=== PATIENT | female | born 1985 | race American Indian/Alaskan Native ===

== ENCOUNTER 2017-01-18 05:05 | Observation (INO) | payer OTHER ==
[2017-01-18 05:09] VITALS: BMI 31.1
[2017-01-18 05:19] VITALS: TEMP 98.1
--- NOTE | 2017-01-18 05:19 | ED PDOC ---
Arrival/HPI - General Historian: Patient - History of Present Illness Time/Duration: Other (tonight) Symptom Onset: Gradual Symptom Course: Unchanged Activities at Onset: Rest, Light Context: Home <Michael Lazo - Last Filed: 01/18/17 05:30> <Isiah Ervin - Last Filed: 01/18/17 13:56> - General Chief Complaint: Abdominal Pain Time Seen by Provider: 01/18/17 05:13 - History of Present Illness Narrative History of Present Illness (Text): 01/18/17 05:18 Annamaria Snell is a 31 year old female who presents to the Emergency department brought in by EMS complaining of lower abdominal pain tonight. Patient also complaining of associated back pain and nausea. Patient denies any fever, chills , chest pain, shortness of breath, vomiting, diarrhea, urinary symptoms,pain, neck pain, headache, dizziness, or any other complaints. (Michael Lazo) Past Medical History - Provider Review Nursing Documentation Reviewed: Yes - Psychiatric Hx Psychophysiologic Disorder: No Hx Substance Use: No - Anesthesia Hx Anesthesia: No <VioletMichael - Last Filed: 01/18/17 05:30> Family/Social History - Physician Review Nursing Documentation Reviewed: Yes Family/Social History: No Known Family HX Smoking Status: Never Smoked Hx Alcohol Use: No Hx Substance Use: No <VioletMichael - Last Filed: 01/18/17 05:30> Allergies/Home Meds <VioletMichael - Last Filed: 01/18/17 05:30> <Isiah Ervin - Last Filed: 01/18/17 13:56> Allergies/Adverse Reactions: Allergies No Known Allergies Allergy (Verified 01/18/17 05:08) Review of Systems - Physician Review All systems were reviewed & negative as marked: Yes - Review of Systems Constitutional: Normal. absent: Fevers Eyes: Normal ENT: Normal Respiratory: Normal. absent: SOB, Cough Cardiovascular: Normal. absent: Chest Pain Gastrointestinal: Abdominal Pain, Nausea Genitourinary Female: Normal. absent: Dysuria, Frequency, Hematuria, Urine Output Changes Musculoskeletal: Back Pain. absent: Neck Pain Skin: Normal. absent: Rash Neurological: Normal. absent: Headache, Dizziness Endocrine: Normal Hemo/Lymphatic: Normal Psychiatric: Normal <VioletMichael - Last Filed: 01/18/17 05:30> Physical Exam Vital Signs Reviewed: Yes Temperature: Afebrile Blood Pressure: Normal Pulse: Regular Respiratory Rate: Normal Appearance: Positive for: Well-Appearing, Non-Toxic, Comfortable Pain Distress: None Mental Status: Positive for: Alert and Oriented X 3 - Systems Exam Head: Present: Atraumatic, Normocephalic Pupils: Present: PERRL Extroacular Muscles: Present: EOMI Conjunctiva: Present: Normal Mouth: Present: Moist Mucous Membranes Neck: Present: Normal Range of Motion Respiratory/Chest: Present: Clear to Auscultation, Good Air Exchange. No: Respiratory Distress, Accessory Muscle Use Cardiovascular: Present: Regular Rate and Rhythm, Normal S1, S2. No: Murmurs Abdomen: Present: Tenderness (Lower abdominal tenderness), Normal Bowel Sounds. No: Distention, Peritoneal Signs Upper Extremity: Present: Normal Inspection. No: Cyanosis, Edema Lower Extremity: Present: Normal Inspection. No: Edema Neurological: Present: GCS=15, CN II-XII Intact, Speech Normal Skin: Present: Warm, Dry, Normal Color. No: Rashes Psychiatric: Present: Alert, Oriented x 3, Normal Insight, Normal Concentration <Michael Lazo - Last Filed: 01/18/17 05:30> Medical Decision Making <Michael Lazo - Last Filed: 01/18/17 05:30> <Isiah Ervin - Last Filed: 01/18/17 13:56> ED Course and Treatment: 01/18/17 05:18 Impression: 31 year old female complaining of lower abdominal pain, back pain, and nausea tonight. Plan: -- Labs, lipase -- Urinalysis -- IV fluids -- Zofran -- Reassess and disposition Progress Notes: (Michael Lazo) - Lab Interpretations Lab Results: Lab Results 01/18/17 05:29: Urine Color Yellow, Urine Appearance Sl cloudy, Urine pH 6.0, Ur Specific [place] 1.020, Urine Protein Negative, Urine Glucose (UA) Negative, Urine Ketones Negative, Urine Blood Trace-intact H, Urine Nitrate Negative, Urine Bilirubin Negative, Urine Urobilinogen 0.2, Ur Leukocyte Esterase Trace H , Urine RBC 1 - 3, Urine WBC 5 - 10, Ur Epithelial Cells 1 - 3, Urine Bacteria Large - Medication Orders Current Medication Orders: Discontinued Medications Sodium Chloride (Sodium Chloride 0.9%) 1,000 mls @ 100 mls/hr IV .Q10H STA Stop: 01/18/17 15:24 Last Admin: 01/18/17 06:03 Dose: 100 mls/hr Iohexol (Omnipaque 350 100 Ml) Confirm Administered Dose 350 mg .ROUTE .STK-MED ONE Stop: 01/18/17 07:04 Morphine Sulfate (Morphine) 4 mg IVP STAT STA Stop: 01/18/17 05:26 Last Admin: 01/18/17 06:03 Dose: 4 mg Re-Assess: LILIANA Pain Assessment Document 01/18/17 07:03 YP (Rec: 01/18/17 07:14 YP [id number]) Pain Reassessment Is this a pain reassessment? Yes Sleep Is patient sleeping during reassessment? No Presence of Pain Presence of Pain No Ondansetron HCl (Zofran Inj) 4 mg IVP STAT STA Stop: 01/18/17 05:26 Last Admin: 01/18/17 06:03 Dose: 4 mg ED OBSERVATION <Michael Lazo - Last Filed: 01/18/17 05:30> Date of observation admission: 01/18/17 Time of observation admission: 05:45 <Isiah Ervin - Last Filed: 01/18/17 13:56> - Observation admission statement Patient is being placed in observation because:: Abdominal pain (Isiah Ervin) - Goals of Observation Goals of observation are:: Pending CT scan, labs, reevaluation (Isiah Ervin) - Progress Note Progress Note: 01/18/17 07:00 Case endorsed to me by , pending CT scan, reevaluation and disposition. 01/18/17 07:55 Pain is controlled. Abdomen is soft, not distended and mildly tender in periumbilical area. No lower abdominal tenderness. Will reevaluate. 01/18/17 09:28 PROCEDURE: CT Abdomen and Pelvis with contrast FINDINGS: LOWER THORAX: Cardiomegaly. . Minor passive atelectasis both posterior lower lung harris high No infiltrate effusion or basilar pneumothorax. Small hiatal hernia. LIVER: There appears to be mild fatty hepatic infiltration. No gross lesion or ductal dilatation. GALLBLADDER AND BILE DUCTS: Unremarkable. PANCREAS: Unremarkable. No gross lesion or ductal dilatation. SPLEEN: Unremarkable. ADRENALS: Unremarkable. No mass. KIDNEYS AND URETERS: Unremarkable. No hydronephrosis. No solid mass. VASCULATURE: Unremarkable. No aortic aneurysm. BOWEL: Few scattered colonic diverticula however no radiographic evidence acute diverticulitis. APPENDIX: Normal appendix. PERITONEUM: No free air or fluid. LYMPH NODES: Multiple small nonspecific retroperitoneal lymph nodes are present. BLADDER: Urinary bladder is incompletely distended which presumably accounts for thick- walled appearance however cystitis not excluded the area Mr. film over the abuse well REPRODUCTIVE: Chronic appearing anterior stature loss of the T12 segment BONES: OTHER FINDINGS: None. IMPRESSION: There is a distended gallbladder with wall thickening and/or edema and suspected small amount of pericholecystic fluid. No definitive intraluminal gallbladder calculi. Findings may represent acute acalculous cholecystitis. Clinical correlation recommended. Wall thickening of the urinary bladder likely due to incomplete distention however the possibility of cystitis not excluded. Few scattered colonic diverticula without radiographic evidence of acute diverticulitis. 01/18/17 12:19 US abdomen results reviewed: FINDINGS: LIVER: Measures 13.1 cm. Increased echogenicity of the liver parenchyma consistent with fatty infiltration however other infiltrative hepatocellular disease process not excluded. . No mass. No intrahepatic bile duct dilatation. GALLBLADDER: Cholelithiasis with associated intraluminal gallbladder sludge of. The mild wall edema with gallbladder wall measuring 1.16 cm. No sonographic Woodson sign. Findings may represent acute cholecystitis despite the fact that sonographic Woodson sign is negative ; this could be due to administration of pain medication however clinical correlation is therefore recommended. . COMMON BILE DUCT: Measures 4.2 mm. No stones. No dilatation. PANCREAS: Unremarkable as visualized. No mass. No ductal dilatation. RIGHT KIDNEY: Measures 9.4 x 4.3 x 5.0 cmcm. Normal echogenicity. No calculus, mass, or hydronephrosis. LEFT KIDNEY: Measures 10.0 x 5.1 x 5.1 cmcm. Normal echogenicity. No calculus, mass, or hydronephrosis. SPLEEN: Normal in size and contour. No mass. AORTA: No aneurysmal dilatation. IVC: Unremarkable. OTHER FINDINGS: None. IMPRESSION: Cholelithiasis with gallbladder wall thickening/ edema however no sonographic Woodson sign. Findings may represent acute cholecystitis on despite the fact that sonographic Woodson sign is negative on this exam as reported by the technologist ; has patient received pain medication? Fatty hepatic infiltration. 01/18/17 13:00 Patient no longer having pain. Patient speaks russian and used translation services [employer] # [id number]. She said her pain was periumbilical when she had it. Not lower than that nor upper. Reevaluation, abdomen soft and not tender. Tolerating PO fluids. Discussed US findings with Sieve Repairer who stated Dr. Peterson will come to evaluate patient. 01/18/17 13:55 Dr. Peterson came to evaluate patient and he agrees that she can go home with f/u. He gave her his card to f/u. No antibiotics needed. She was given [facility] and told to return to the ED with any worsening symptoms or concerns. She was given all this information with translation services again with [employer] # [id number]. (Isiah Ervin) - Scribe Statement The provider has reviewed the documentation as recorded by the Scribe <Michael Lazo - Last Filed: 01/18/17 05:30> <Isiah Ervin - Last Filed: 01/18/17 13:56> - Scribe Statement Norma Finley All medical record entries made by the Scribe were at my direction and personally dictated by me. I have reviewed the chart and agree that the record accurately reflects my personal performance of the history, physical exam, medical decision making, and the department course for this patient. I have also personally directed, reviewed, and agree with the discharge instructions and disposition. (Michael Lazo) Disposition/Present on Arrival - Present on Arrival History of DVT/PE: No History of Uncontrolled Diabetes: No Urinary Catheter: No History of Decub. Ulcer: No History Surgical Site Infection Following: None <Michael Lazo - Last Filed: 01/18/17 05:30> - Present on Arrival Any Indicators Present on Arrival: No - Disposition Have Diagnosis and Disposition been Completed?: Yes Disposition Time: 13:56 Patient Plan: Discharge <Isiah Ervin - Last Filed: 01/18/17 13:56> - Disposition Diagnosis: Abdominal pain, Biliary colic Disposition: HOME/ ROUTINE Condition: IMPROVED
[2017-01-18] MEDS ORDERED: Sodium Chloride 0.9% 1,000 ML IV STA (05:25)
[2017-01-18] MEDS ORDERED: Morphine 4 mg/ml ISec IVP STA (05:25)
[2017-01-18 05:52] LABS: URINE BILIRUBIN NEGATIVE (NEGATIVE); URINE BLOOD TRACE-INTACT (NEGATIVE); URINE GLUCOSE (UA) NEGATIVE (NEGATIVE); URINE KETONE NEGATIVE (NEGATIVE); URINE LEUKOCYTE ESTERASE TRACE Leu/uL (NEGATIVE); URINE PROTEIN NEGATIVE mg/dL (<30 mg/dL); URINE UROBILINOGEN 0.2 E.U./dL (<1 E.U./dL)
[2017-01-18 05:53] LABS: URINE APPEARANCE SL CLOUDY (CLEAR); URINE COLOR YELLOW (YELLOW)
[2017-01-18 06:09] LABS: ADD MANUAL DIFF? NO
[2017-01-18 06:14] LABS: BASO # 0.04 K/mm3 (0.0-2.0); BASO % 0.6 % (0.0-3.0); EOS # 0.1 (0.0-0.7); EOS % 1.9 % (1.5-5.0); GRAN % 59.7 % (50.0-68.0); LYMPH % 29.9 % (22.0-35.0); MEAN CELL VOLUME 84.3 fL (80.0-105.0); MEAN CORPUSCULAR HEMOGLOBIN 28.3 pg (25.0-35.0); MEAN CORPUSCULAR HGB CONC 33.6 g/dl (31.0-37.0); MEAN PLATELET VOLUME 10.2 fl (7.0-11.0); MONO # 0.5 (0.1-0.6); MONO % 7.9 % (1.0-6.0); PLATELET COUNT 312 10^3/uL (120.0-450.0); RED CELL DISTRIBUTION WIDTH 12.7 % (11.5-14.5); WHITE BLOOD COUNT 6.7 10^3/ul (4.5-11.0)
[2017-01-18 06:20] LABS: URINE BACTERIA LARGE (NEG)
[2017-01-18 06:21] LABS: ALKALINE PHOSPHATASE 74 U/L (38-133); ALT/SGPT 45 U/L (7-56); AST/SGOT 32 U/L (15-39); BLOOD UREA NITROGEN 9 mg/dL (7-21); CALCIUM 9.4 mg/dL (8.4-10.5); CARBON DIOXIDE 20 mmol/L (21-33); CHLORIDE 104 mmol/L (98-107); GFR AFRICAN-AMERICAN > 60; GLUCOSE,RANDOM 101 mg/dL (70-110); LIPASE 45 U/L (23-300); POTASSIUM 3.8 mmol/L (3.6-5.0); SODIUM 137 mmol/L (132-148); TOTAL PROTEIN 8.2 g/dL (5.8-8.3)
[2017-01-18 06:24] LABS: PARTIAL THROMBOPLASTIN TIME 34.4 Seconds (23.7-30.8)
[2017-01-18] MEDS ORDERED: Iohexol 350 MG/100 ML VIAL ONE (07:03)
--- NOTE | 2017-01-18 07:41 | ED PDOC ---
Physical Exam Vital Signs Reviewed: Yes Vital Signs Temp Pulse Resp BP Pulse Ox 01/18/17 06:58 61 16 117/73 99 01/18/17 05:18 98.1 F 73 17 131/75 100 Temperature: Afebrile Blood Pressure: Normal Pulse: Regular Respiratory Rate: Normal Appearance: Positive for: Well-Appearing, Non-Toxic, Comfortable Pain Distress: None Mental Status: Positive for: Alert and Oriented X 3 Medical Decision Making ED Course and Treatment: 01/18/17 07:39 Case endorsed to me by , pending CT abdomen pelvis, reevaluation and disposition. Patient is a 31 year old female who presents to the emergency department complaining of lower abdominal pain since yesterday night. Denies nausea, vomiting, or diarrhea. - Lab Interpretations Lab Results: Lab Results 01/18/17 05:29: Urine Color Yellow, Urine Appearance Sl cloudy, Urine pH 6.0, Ur Specific [place] 1.020, Urine Protein Negative, Urine Glucose (UA) Negative, Urine Ketones Negative, Urine Blood Trace-intact H, Urine Nitrate Negative, Urine Bilirubin Negative, Urine Urobilinogen 0.2, Ur Leukocyte Esterase Trace H , Urine RBC 1 - 3, Urine WBC 5 - 10, Ur Epithelial Cells 1 - 3, Urine Bacteria Large - Medication Orders Current Medication Orders: Sodium Chloride (Sodium Chloride 0.9%) 1,000 mls @ 100 mls/hr IV .Q10H STA Stop: 01/18/17 15:24 Last Admin: 01/18/17 06:03 Dose: 100 mls/hr Discontinued Medications Iohexol (Omnipaque 350 100 Ml) Confirm Administered Dose 350 mg .ROUTE .STK-MED ONE Stop: 01/18/17 07:04 Morphine Sulfate (Morphine) 4 mg IVP STAT STA Stop: 01/18/17 05:26 Last Admin: 01/18/17 06:03 Dose: 4 mg Re-Assess: LILIANA Pain Assessment Document 01/18/17 07:03 YP (Rec: 01/18/17 07:14 YP [id number]) Pain Reassessment Is this a pain reassessment? Yes Sleep Is patient sleeping during reassessment? No Presence of Pain Presence of Pain No Ondansetron HCl (Zofran Inj) 4 mg IVP STAT STA Stop: 01/18/17 05:26 Last Admin: 01/18/17 06:03 Dose: 4 mg Disposition/Present on Arrival - Present on Arrival History of DVT/PE: No History of Uncontrolled Diabetes: No Urinary Catheter: No History of Decub. Ulcer: No History Surgical Site Infection Following: None - Disposition
--- NOTE | 2017-01-18 09:09 | CT ---
PROCEDURE: CT Abdomen and Pelvis with contrast HISTORY: abd pain COMPARISON: None. TECHNIQUE: Contrast dose: 100 cc Radiation dose: Total exam DLP = 1992.28 mGy-cm. This CT exam was performed using one or more of the following dose reduction techniques: Automated exposure control, adjustment of the mA and/or kV according to patient size, and/or use of iterative reconstruction technique. FINDINGS: LOWER THORAX: Cardiomegaly. . Minor passive atelectasis both posterior lower lung [place]arris high No infiltrate effusion or basilar pneumothorax. Small hiatal hernia. LIVER: There appears to be mild fatty hepatic infiltration. No gross lesion or ductal dilatation. GALLBLADDER AND BILE DUCTS: Unremarkable. PANCREAS: Unremarkable. No gross lesion or ductal dilatation. SPLEEN: Unremarkable. ADRENALS: Unremarkable. No mass. KIDNEYS AND URETERS: Unremarkable. No hydronephrosis. No solid mass. VASCULATURE: Unremarkable. No aortic aneurysm. BOWEL: Few scattered colonic diverticula however no radiographic evidence acute diverticulitis. APPENDIX: Normal appendix. PERITONEUM: No free air or fluid. LYMPH NODES: Multiple small nonspecific retroperitoneal lymph nodes are present. BLADDER: Urinary bladder is incompletely distended which presumably accounts for thick-walled appearance however cystitis not excluded the area Mr. film over the abuse well REPRODUCTIVE: Chronic appearing anterior stature loss of the T12 segment BONES: OTHER FINDINGS: None. IMPRESSION: There is a distended gallbladder with wall thickening and/or edema and suspected small amount of pericholecystic fluid. No definitive intraluminal gallbladder calculi. Findings may represent acute acalculous cholecystitis. Clinical correlation recommended. Wall thickening of the urinary bladder likely due to incomplete distention however the possibility of cystitis not excluded. Few scattered colonic diverticula without radiographic evidence of acute diverticulitis.
--- NOTE | 2017-01-18 11:56 | US ---
HISTORY: abd pain r/o cholecystitis COMPARISON: None. TECHNIQUE: Sonographic evaluation of the abdomen. FINDINGS: LIVER: Measures 13.1 cm. Increased echogenicity of the liver parenchyma consistent with fatty infiltration however other infiltrative hepatocellular disease process not excluded. . No mass. No intrahepatic bile duct dilatation. GALLBLADDER: Cholelithiasis with associated intraluminal gallbladder sludge of. The mild wall edema with gallbladder wall measuring 1.16 cm. No sonographic Woodson sign. Findings may represent acute cholecystitis despite the fact that sonographic Woodson sign is negative ; this could be due to administration of pain medication however clinical correlation is therefore recommended. . COMMON BILE DUCT: Measures 4.2 mm. No stones. No dilatation. PANCREAS: Unremarkable as visualized. No mass. No ductal dilatation. RIGHT KIDNEY: Measures 9.4 x 4.3 x 5.0 cmcm. Normal echogenicity. No calculus, mass, or hydronephrosis. LEFT KIDNEY: Measures 10.0 x 5.1 x 5.1 cmcm. Normal echogenicity. No calculus, mass, or hydronephrosis. SPLEEN: Normal in size and contour. No mass. AORTA: No aneurysmal dilatation. IVC: Unremarkable. OTHER FINDINGS: None. IMPRESSION: Cholelithiasis with gallbladder wall thickening/ edema however no sonographic Woodson sign. Findings may represent acute cholecystitis on despite the fact that sonographic Woodson sign is negative on this exam as reported by the technologist ; has patient received pain medication? Fatty hepatic infiltration.
[2017-01-18 13:33] VITALS: O2SAT 100
--- NOTE | 2017-01-18 13:57 | CP.PCM.CON ---
<Mark Mendez - Last Filed: 01/18/17 13:57> History of Present Illness - History of Present Illness History of Present Illness: General Surgery Progress For Dr. Peterson CC: Abdominal Pain HPI This is a 31F with no significant PMH who presents due to abdominal pain. She reports that she has had abdominal pain after eating for the past month however yesterday it was significantly worse. Patient denies any pain at the time of exam. She denies any nausea, vomitting, diarrhea or constipation. She reports he last BM was yesterday and she is passing flatus. She denies fevers or chills at home. US in the ED found no stones, a normal CBD, a GB wall that was 1.12mm with pericholecystic fluid. No chest pain or SOB PMH: Denies PSH: Leg surgery ALL: NKDA Social: Denies etoh, Tobacco, Drugs Review of Systems - EENT Eyes: absent: Blind Spots, Change in Vision, Other Visual Disturbances Ears: absent: Decreased Hearing, Ear Discharge Nose/Mouth/Throat: absent: Nasal Congestion, Nasal Trauma - Cardiovascular Cardiovascular: absent: Chest Pain, Dyspnea - Respiratory Respiratory: absent: Dyspnea, Hemoptysis - Gastrointestinal Gastrointestinal: Abdominal Pain, Bloating, Cramping. absent: Loose Stools, Nausea, Vomiting - Genitourinary Genitourinary: absent: Change in Urinary Stream, Urinary Hesitance - Musculoskeletal Musculoskeletal: absent: Arthralgias - Neurological Neurological: absent: Dizziness, Loss of Vision Past Patient History - Past Social History Smoking Status: Never Smoked - PSYCHIATRIC Hx Psychophysiologic Disorder: No Hx Substance Use: No - SURGICAL HISTORY Hx Surgeries: No - ANESTHESIA Hx Anesthesia: No Meds Allergies/Adverse Reactions: Allergies Allergy/AdvReac Type Severity Reaction Status Date / Time No Known Allergies Allergy Verified 01/18/17 05:08 Physical Exam - Constitutional Appears: Non-toxic, No Acute Distress - Head Exam Head Exam: ATRAUMATIC, NORMOCEPHALIC - Eye Exam Eye Exam: EOMI, Normal appearance - ENT Exam ENT Exam: Mucous Membranes Moist, Normal Exam - Respiratory Exam Respiratory Exam: NORMAL BREATHING PATTERN - Cardiovascular Exam Cardiovascular Exam: +S1, +S2 - GI/Abdominal Exam GI & Abdominal Exam: Soft. absent: Distended, Firm, Guarding, Hernia, Rigid - Neurological Exam Neurological exam: Alert, Oriented x3 - Psychiatric Exam Psychiatric exam: Normal Affect, Normal Mood - Skin Skin Exam: Dry, Intact Results - Vital Signs Recent Vital Signs: Last Vital Signs Temp 98.1 F 01/18/17 05:18 Pulse 67 01/18/17 13:32 Resp 19 01/18/17 13:32 BP 102/63 01/18/17 13:32 Pulse Ox 100 01/18/17 13:32 - Labs Result Diagrams: 01/18/17 05:55 01/18/17 05:55 Labs: Laboratory Results - last 24 hr 01/18/17 01/18/17 01/18/17 05:55 05:55 05:55 WBC 6.7 RBC 4.98 Hgb 14.1 Hct 42.0 MCV 84.3 MCH 28.3 MCHC 33.6 RDW 12.7 Plt Count 312 MPV 10.2 Gran % 59.7 Lymph % (Auto) 29.9 [place] % (Auto) 7.9 H Eos % (Auto) 1.9 Baso % (Auto) 0.6 Gran # 4.00 Lymph # 2.0 [place] # 0.5 Eos # 0.1 Baso # 0.04 PT 10.8 INR 1.00 APTT 34.4 H Sodium 137 Potassium 3.8 Chloride 104 Carbon Dioxide 20 L Anion Gap 17 BUN 9 Creatinine 0.7 Est GFR ( Amer) > 60 Est GFR (Non-Af Amer) > 60 Random Glucose 101 Calcium 9.4 Total Bilirubin 1.0 AST 32 ALT 45 Alkaline Phosphatase 74 Total Protein 8.2 Albumin 4.1 Globulin 4.1 Albumin/Globulin Ratio 1.0 L Lipase 45 - Imaging and Cardiology CT scan - abdomen Status: Image reviewed by me, Report reviewed by me US - abdomen Status: Image reviewed by me, Report reviewed by me Assessment & Plan - Assessment and Plan (Free Text) Assessment: This is a 31F with abdominal pain possible biliary colic Recommend outpatient followup for possible elective cholecystectomy D/W Dr. Kristen Mendez PGY1 <Bro Peterson - Last Filed: 01/21/17 21:35> Results - Vital Signs Recent Vital Signs: Last Vital Signs Temp 98.1 F 01/18/17 05:18 Pulse 71 01/18/17 14:00 Resp 14 01/18/17 14:00 BP 122/71 01/18/17 14:00 Pulse Ox 100 01/18/17 14:00 - Labs Result Diagrams: 01/18/17 05:55 01/18/17 05:55 Attending/Attestation - Attestation I have personally seen and examined this patient.: Yes I have fully participated in the care of the patient.: Yes I have reviewed all pertinent clinical information: Yes Notes (Text): 01/21/17 21:34 Pt was seen and examined at bedside on 01/18/17 Agree with above note and assessment Pt with Cholelithiasis with resolved Cholecystitis with Morbid Obesity Low fat diet Po antibiotics Pt wants to go home F.u as out pt Plan d.w pt and primary team in detail Risk and benefit explained in detail.
[2017-01-18 15:11] VITALS: BP 122/71; PULSE 71; RESP 14
== END 2017-01-18 13:40 | disposition home or self-care (01) ==
LOC: ED 05:05 → EROBSV 05:42
PROVIDERS: ADMIT Emergency Medicine; ATTEND Emergency Medicine
DX: R10.9 Unspecified abdominal pain (principal); K80.50 Calculus of bile duct without cholangitis or cholecystitis without obstruction
CPT/HCPCS: 74177; 76700; 80053; 81001; 83690; 85025; 85610; 85730; 87086; 96374; 96375; 99284; G0378; J2270; J2405; J7040; Q9967

== ENCOUNTER 2017-01-19 21:35 | Inpatient (IN) | payer MEDICAID, OTHER ==
[2017-01-19 22:04] VITALS: BMI 32.9
[2017-01-19] MEDS ORDERED: Sodium Chloride 0.9% 1,000 ML IV STA (22:08)
[2017-01-19] MEDS ORDERED: HYDROmorphone 2 mg/ml ISec IVP STA (22:09)
--- NOTE | 2017-01-19 22:23 | ED PDOC ---
Arrival/HPI - General Chief Complaint: Abdominal Pain Time Seen by Provider: 01/19/17 21:49 Historian: Patient - History of Present Illness Narrative History of Present Illness (Text): 01/19/17 22:24 Annamaria Snell is a 31 year old female who presents to the emergency department complaining of unresolved abdominal pain for past 2 days. Patient was evaluated yesterday for similar symptoms. CT abdomen pelvis done yesterday showed cholelithiasis with gallbladder wall thickening. Patient was advised to follow up with Dr. Quesada and was discharged home after her pain resolved. However patient states that her symptoms presented again today before she was able to follow up. Denies fever, chills, headache, dizziness, nausea, vomiting, diarrhea , or any other complaints at this time. Time/Duration: < week (2 days ) Symptom Course: Unchanged Severity Level: Mild Activities at Onset: Light Past Medical History - Provider Review Nursing Documentation Reviewed: Yes - Psychiatric Hx Psychophysiologic Disorder: No Hx Substance Use: No - Anesthesia Hx Anesthesia: No Family/Social History - Physician Review Nursing Documentation Reviewed: Yes Family/Social History: No Known Family HX Smoking Status: Never Smoked Hx Alcohol Use: No Hx Substance Use: No Allergies/Home Meds Allergies/Adverse Reactions: Allergies No Known Allergies Allergy (Verified 01/18/17 05:08) Review of Systems - Physician Review All systems were reviewed & negative as marked: Yes - Review of Systems Constitutional: Normal. absent: Fatigue Cardiovascular: Normal. absent: Chest Pain, Palpitations Gastrointestinal: Abdominal Pain. absent: Diarrhea, Nausea, Vomiting Genitourinary Female: Normal Neurological: Normal. absent: Headache, Dizziness Psychiatric: Normal Physical Exam Vital Signs Reviewed: Yes Vital Signs Temp Pulse Resp BP Pulse Ox 01/20/17 03:14 75 18 131/69 97 01/20/17 01:39 63 18 129/76 96 01/19/17 23:50 66 18 107/54 L 96 01/19/17 22:12 97.4 F L 73 16 125/60 100 Temperature: Afebrile Blood Pressure: Normal Pulse: Regular Respiratory Rate: Normal Appearance: Positive for: Well-Appearing, Non-Toxic, Comfortable Pain Distress: None Mental Status: Positive for: Alert and Oriented X 3 - Systems Exam Head: Present: Atraumatic, Normocephalic Pupils: Present: PERRL Conjunctiva: Present: Normal Respiratory/Chest: Present: Clear to Auscultation, Good Air Exchange. No: Respiratory Distress, Accessory Muscle Use Cardiovascular: Present: Regular Rate and Rhythm, Normal S1, S2. No: Murmurs Abdomen: Present: Tenderness, Normal Bowel Sounds. No: Distention, Peritoneal Signs Upper Extremity: Present: Normal Inspection. No: Cyanosis, Edema Lower Extremity: Present: Normal Inspection. No: Edema Neurological: Present: GCS=15, CN II-XII Intact, Speech Normal, Motor Func Grossly Intact, Normal Sensory Function Skin: Present: Warm, Dry, Normal Color. No: Rashes Psychiatric: Present: Alert, Oriented x 3, Normal Insight, Normal Concentration Medical Decision Making ED Course and Treatment: 01/19/17 22:30 Impression: A 31 year old female who presents to the emergency department complaining of unresolved abdominal pain for past 2 days. Plan: -- Labs -- Dilaudid -- Protonix -- IV fluids -- Zofran -- US abdomen -- Reassess and disposition Progress Notes: 01/20/17 02:05 US Abdomen, Right Upper Quadrant results reviewed: FINDINGS: History---Patient had CT of the abdomen January 18, 2017 at approximately 8 AM. Patient had ultrasound of the abdomen dated January 18, 2017 at approximately 10 AM. Ultrasound on January 18 was of note for cholelithiasis with gallbladder wall thickening and edema as well as hepatic steatosis. Liver: The liver measures 15.2 x 9.7 x 8.7 cm, with increased echogenicity in keeping with hepatic steatosis. No intrahepatic bile duct dilation. Gallbladder: As per the lead neurodiagnostic technologist, there was no sonographic Woodson 's sign. The gallbladder is filled with echogenic sludge and some shadowing stones. There is gallbladder wall thickening, as was also seen previously, on both the ultrasound and the CT. Suggestion of trace pericholecystic fluid. These findings are best seen series 2 image 31. Common bile duct: Common bile duct is 5 mm which is within normal limits. No stones. No dilation. Pancreas: There was limited visualization of the pancreas. Right kidney: Right kidney measures 10.8 x 4.7 x 5.0 cm. No stones. No hydronephrosis. Spleen: The spleen was not imaged. IMPRESSION: Redemonstration of gallbladder wall thickening and likely trace pericholecystic fluid. Redemonstration of gallbladder is filled with sludge and stones. Again noted that findings are suspicious for cholecystitis. Laboratory correlation recommended. Hepatic steatosis. Right kidney with no apparent acute pathology. 01/20/17 03:52 Case discussed with omar Foss md, who agrees with the plan to admit patient to med/surge for cholecystitis. Accepts patient under hospitalist service. - Lab Interpretations Lab Results: 01/19/17 22:41 01/19/17 22:41 Lab Results 01/19/17 22:41: Sodium 136, Potassium 4.4, Chloride 105, Carbon Dioxide 22, Anion Gap 13, BUN 11, Creatinine 0.7, Est GFR ( Amer) > 60, Est GFR (Non- Af Amer) > 60, Random Glucose 89, Calcium 9.7, Total Bilirubin 1.0, AST 41 H, ALT 41, Alkaline Phosphatase 68, Total Protein 8.8 H, Albumin 4.4, Globulin 4.4 , Albumin/Globulin Ratio 1.0 L, Lipase 56 01/19/17 22:41: PT 11.0, INR 1.02, APTT 32.9 H 01/19/17 22:41: WBC 7.3, RBC 4.73, Hgb 13.5, Hct 40.2, MCV 85.0, MCH 28.5, MCHC 33.6, RDW 12.9, Plt Count 319, MPV 10.0, Gran % 51.4, Lymph % (Auto) 38.2 H, Arthur % (Auto) 7.9 H, Eos % (Auto) 2.1, Baso % (Auto) 0.4, Gran # 3.76, Lymph # 2.8, Arthur # 0.6, Eos # 0.2, Baso # 0.03 I have reviewed the lab results: Yes - RAD Interpretation Radiology Orders: 01/19/17 23:55 GALL BLADDER [US] Stat Clinical Laboratory Scientist: Radiologist - Medication Orders Current Medication Orders: Discontinued Medications Acetaminophen (Tylenol 325mg Tab) 650 mg PO Q6H PRN PRN Reason: Pain, Mild (1-3) Desflurane (Suprane) Confirm Administered Dose 240 ml .ROUTE .STK-MED ONE Stop: 01/20/17 13:49 Enoxaparin Sodium (Lovenox) 40 mg SC DAILY [facility] PRN Reason: Protocol Last Admin: 01/21/17 10:47 Dose: 40 mg Fentanyl (Fentanyl) Confirm Administered Dose 100 mcg .ROUTE .STK-MED ONE Stop: 01/20/17 12:41 Glycopyrrolate (Robinul) Confirm Administered Dose 0.4 mg .ROUTE .STK-MED ONE Stop: 01/20/17 14:51 Hydromorphone HCl (Dilaudid) 2 mg IVP STAT STA Stop: 01/19/17 22:10 Last Admin: 01/19/17 22:31 Dose: 2 mg Hydromorphone HCl (Dilaudid) 0.5 mg IVP Q15M PRN PRN Reason: Pain, moderate (4-7) Stop: 01/20/17 17:08 Last Admin: 01/20/17 15:12 Dose: 0.5 mg Hydromorphone HCl (Dilaudid) Confirm Administered Dose 0.5 mg .ROUTE .STK-MED ONE Stop: 01/20/17 15:11 Sodium Chloride (Sodium Chloride 0.9%) 1,000 mls @ 100 mls/hr IV .Q10H STA Stop: 01/20/17 08:07 Last Admin: 01/19/17 22:32 Dose: 100 mls/hr Metronidazole (Flagyl) 500 mg in 100 mls @ 100 mls/hr IVPB STAT STA PRN Reason: Protocol Stop: 01/20/17 03:04 Last Admin: 01/20/17 03:47 Dose: 100 mls/hr Ceftriaxone Sodium (Rocephin 1 Gram Ivpb) 1 gm in 100 mls @ 200 mls/hr IVPB STAT STA PRN Reason: Protocol Stop: 01/20/17 02:37 Last Admin: 01/20/17 02:34 Dose: 200 mls/hr Metronidazole (Flagyl) 500 mg in 100 mls @ 100 mls/hr IVPB Q8H [facility] PRN Reason: Protocol Last Admin: 01/21/17 12:24 Dose: 100 mls/hr Ceftriaxone Sodium (Rocephin 1 Gram Ivpb) 1 gm in 100 mls @ 100 mls/hr IVPB DAILY [facility] PRN Reason: Protocol Last Admin: 01/21/17 10:46 Dose: 100 mls/hr Lactated Ringer's (Lactated Ringer's) 1,000 mls @ 75 mls/hr IV .[id number] [facility] Last Admin: 01/21/17 12:24 Dose: 75 mls/hr Lactated Ringer's (Lactated Ringer's) 1,000 mls @ 75 mls/hr IV .[id number] [facility] Stop: 01/20/17 17:09 Ketorolac Tromethamine (Toradol) 30 mg IVP STAT STA Stop: 01/20/17 15:21 Ketorolac Tromethamine (Toradol) Confirm Administered Dose 30 mg .ROUTE .STK- MED ONE Stop: 01/20/17 15:23 Ketorolac Tromethamine (Toradol) 30 mg IVP .STK-MED ONE Stop: 01/20/17 15:25 Last Admin: 01/20/17 15:24 Dose: 30 mg Midazolam HCl (Versed Inj) Confirm Administered Dose 2 mg .ROUTE .STK-MED ONE Stop: 01/20/17 13:48 Morphine Sulfate (Morphine) 4 mg IVP Q4H PRN PRN Reason: Pain, severe (8-10) Neostigmine Methylsulfate (Neostigmine Methylsulfate) Confirm Administered Dose 3 mg IV .STK-MED ONE Stop: 01/20/17 15:05 Ondansetron HCl (Zofran Inj) 4 mg IVP STAT STA Stop: 01/19/17 22:09 Last Admin: 01/19/17 22:31 Dose: 4 mg Ondansetron HCl (Zofran Inj) 4 mg IVP ONCE PRN PRN Reason: Nausea/Vomiting Ondansetron HCl (Zofran Inj) 4 mg IVP Q4H PRN PRN Reason: Nausea/Vomiting Oxycodone/Acetaminophen (Percocet 5/325 Mg Tab) 1 tab PO Q4H PRN PRN Reason: Pain, moderate (4-7) Stop: 01/23/17 15:09 Last Admin: 01/21/17 10:46 Dose: 1 tab Re-Assess: LILIANA Pain Assessment Document 01/21/17 11:46 (Rec: 01/21/17 12:23 [id number]) Pain Reassessment Is this a pain reassessment? Yes Sleep Is patient sleeping during reassessment? Yes Pantoprazole Sodium (Protonix Inj) 40 mg IVP STAT STA Stop: 01/19/17 22:09 Last Admin: 01/19/17 22:31 Dose: 40 mg Pantoprazole Sodium (Protonix Inj) 40 mg IVP DAILY [facility] Last Admin: 01/21/17 10:46 Dose: 40 mg Propofol (Diprivan) Confirm Administered Dose 200 mg .ROUTE .STK-MED ONE Stop: 01/20/17 12:41 - Scribe Statement The provider has reviewed the documentation as recorded by the Sukh Blanchard Provider Attestation: All medical record entries made by the Sukh were at my direction and personally dictated by me. I have reviewed the chart and agree that the record accurately reflects my personal performance of the history, physical exam, medical decision making, and the department course for this patient. I have also personally directed, reviewed, and agree with the discharge instructions and disposition. Disposition/Present on Arrival - Present on Arrival Any Indicators Present on Arrival: No History of DVT/PE: No History of Uncontrolled Diabetes: No Urinary Catheter: No History of Decub. Ulcer: No History Surgical Site Infection Following: None - Disposition Have Diagnosis and Disposition been Completed?: Yes Diagnosis: Abdominal pain, Cholecystitis Disposition: HOSPITALIZED Disposition Time: 03:45 Condition: GOOD
[2017-01-19 22:48] LABS: ADD MANUAL DIFF? NO
[2017-01-19 22:53] LABS: BASO # 0.03 K/mm3 (0.0-2.0); BASO % 0.4 % (0.0-3.0); EOS # 0.2 (0.0-0.7); EOS % 2.1 % (1.5-5.0); GRAN # 3.76 (1.4-6.5); GRAN % 51.4 % (50.0-68.0); HEMATOCRIT 40.2 % (36.0-48.0); LYMPH # 2.8 (1.2-3.4); LYMPH % 38.2 % (22.0-35.0); MEAN CORPUSCULAR HEMOGLOBIN 28.5 pg (25.0-35.0); MEAN CORPUSCULAR HGB CONC 33.6 g/dl (31.0-37.0); MONO # 0.6 (0.1-0.6); MONO % 7.9 % (1.0-6.0); PLATELET COUNT 319 10^3/uL (120.0-450.0); RED CELL DISTRIBUTION WIDTH 12.9 % (11.5-14.5); WHITE BLOOD COUNT 7.3 10^3/ul (4.5-11.0)
[2017-01-19 23:02] LABS: ALKALINE PHOSPHATASE 68 U/L (38-133); ALT/SGPT 41 U/L (7-56); AST/SGOT 41 U/L (15-39); BLOOD UREA NITROGEN 11 mg/dL (7-21); CALCIUM 9.7 mg/dL (8.4-10.5); CARBON DIOXIDE 22 mmol/L (21-33); CHLORIDE 105 mmol/L (98-107); GFR AFRICAN-AMERICAN > 60; GLUCOSE,RANDOM 89 mg/dL (70-110); LIPASE 56 U/L (23-300); POTASSIUM 4.4 mmol/L (3.6-5.0); SODIUM 136 mmol/L (132-148); TOTAL PROTEIN 8.8 g/dL (5.8-8.3)
[2017-01-19 23:07] LABS: INR 1.02 (0.93-1.08); PARTIAL THROMBOPLASTIN TIME 32.9 Seconds (23.7-30.8)
--- NOTE | 2017-01-20 01:50 | US ---
EXAM: US Abdomen Limited, Right Upper Quadrant CLINICAL HISTORY: 31 years old, female; Pain; Abdominal pain; Epigastric; Additional info: Abd pain TECHNIQUE: Real-time ultrasound of the right upper quadrant with image documentation. EXAM DATE/TIME: Exam ordered 01/19/2017 11:55 PM COMPARISON: CT - ABD PELVIS IV CONTRAST ONLY 01/18/2017 8:07:52 AM FINDINGS: History---Patient had CT of the abdomen January 18, 2017 at approximately 8 AM. Patient had ultrasound of the abdomen dated January 18, 2017 at approximately 10 AM. Ultrasound on January 18 was of note for cholelithiasis with gallbladder wall thickening and edema as well as hepatic steatosis. Liver: The liver measures 15.2 x 9.7 x 8.7 cm, with increased echogenicity in keeping with hepatic steatosis. No intrahepatic bile duct dilation. Gallbladder: As per the industrial technologist, there was no sonographic Woodson's sign. The gallbladder is filled with echogenic sludge and some shadowing stones. There is gallbladder wall thickening, as was also seen previously, on both the ultrasound and the CT. Suggestion of trace pericholecystic fluid. These findings are best seen series 2 image 31. Common bile duct: Common bile duct is 5 mm which is within normal limits. No stones. No dilation. Pancreas: There was limited visualization of the pancreas. Right kidney: Right kidney measures 10.8 x 4.7 x 5.0 cm. No stones. No hydronephrosis. Spleen: The spleen was not imaged. IMPRESSION: Redemonstration of gallbladder wall thickening and likely trace pericholecystic fluid. Redemonstration of gallbladder is filled with sludge and stones. Again noted that findings are suspicious for cholecystitis. Laboratory correlation recommended. Hepatic steatosis. Right kidney with no apparent acute pathology.
[2017-01-20] MEDS ORDERED: metroNIDAZOLE IV 500 mg/100 ml 500 MG/100 ML BAG IVPB STA (02:05)
[2017-01-20] MEDS ORDERED: cefTRIAXone 1 gm 1 GM/100 ML BAG IVPB STA (02:08)
--- NOTE | 2017-01-20 04:20 | CP.PCM.HP ---
History of Present Illness - History of Present Illness History of Present Illness: Clemente Velez D.O. PGY-1, Internal Medicine Resident, Night Float Admission Note CC: abdominal pain for 2 days 31 year old female with no PMH who presents to [facility] ER on 01/20/17 with complaints of abdominal pain for 2 days. Patient states the pain is diffuse over the abdomen, mostly in the center, non-radiating, not associated with N/V/D/C/fevers /chills, aggravated by meals, particularly oily/fatty meals, not alleviated by anything that she's noticed, and 10/10, intermittent at worst. Patient states that she has been actually having these symptoms for 2-3 weeks on and off but now she can't eat anything without getting some pain. PMD: denies PMH: denies PSH: right leg surgery 2/ trauma SH: denies smoking, alcohol, or drug use FH: denies Meds: none Allergies: NKA Present on Admission - Present on Admission Any Indicators Present on Admission: No Review of Systems - Constitutional Constitutional: absent: Anorexia, Chills, Headache - EENT Eyes: absent: Blurred Vision, Change in Vision, Discharge Ears: absent: Decreased Hearing, Ear Discharge, Tinnitus Nose/Mouth/Throat: absent: Epistaxis, Nasal Congestion, Nasal Discharge - Cardiovascular Cardiovascular: absent: Chest Pain, Claudication, Leg Edema - Respiratory Respiratory: absent: Cough, Dyspnea, Hemoptysis - Gastrointestinal Gastrointestinal: Abdominal Pain. absent: Constipation, Diarrhea, Dysphagia, Nausea, Vomiting - Genitourinary Genitourinary: absent: Dysuria, Hematuria - Musculoskeletal Musculoskeletal: absent: Abnormal Gait, Back Pain - Integumentary Integumentary: absent: Pruritus, Skin Ulcer, Sores - Neurological Neurological: absent: Abnormal Gait, Abnormal Hearing, Abnormal Movements, Confusion Past Patient History - Past Social History Smoking Status: Never Smoked - PSYCHIATRIC Hx Psychophysiologic Disorder: No Hx Substance Use: No - SURGICAL HISTORY Hx Surgeries: No - ANESTHESIA Hx Anesthesia: No Meds Allergies/Adverse Reactions: Allergies Allergy/AdvReac Type Severity Reaction Status Date / Time No Known Allergies Allergy Verified 01/18/17 05:08 Physical Exam - Constitutional Additional comments: well developed, obese [place] female resting in bed, appears uncomfortable - Head Exam Head Exam: ATRAUMATIC, NORMOCEPHALIC - Eye Exam Eye Exam: EOMI, PERRL. absent: Conjunctival injection, Scleral icterus - ENT Exam ENT Exam: Mucous Membranes Moist, Normal Oropharynx - Neck Exam Additional comments: soft, supple, no LAD - Respiratory Exam Respiratory Exam: Clear to Auscultation Bilateral. absent: Rales, Rhonchi, Wheezes - Cardiovascular Exam Cardiovascular Exam: RRR, +S1, +S2. absent: Gallop, Rubs, Systolic Murmur - GI/Abdominal Exam GI & Abdominal Exam: Guarding, Normal Bowel Sounds, Soft, Tenderness (diffuse, mild but s/p pain medicine). absent: Distended - Extremities Exam Extremities exam: Positive for: normal capillary refill, pedal pulses present. Negative for: calf tenderness, joint swelling, pedal edema, tenderness - Neurological Exam Neurological exam: Alert, CN II-XII Intact, Oriented x3 - Skin Skin Exam: Dry, Intact, Warm Results - Vital Signs Recent Vital Signs: Last Vital Signs Temp 97.4 F L 01/19/17 22:12 Pulse 75 01/20/17 03:14 Resp 18 01/20/17 03:14 BP 131/69 01/20/17 03:14 Pulse Ox 97 01/20/17 03:14 - Labs Result Diagrams: 01/19/17 22:41 01/19/17 22:41 Assessment & Plan - Assessment and Plan (Free Text) Assessment: 31 year old female with no PMH who presents with complaints of abdominal pain for 2 day Plan: 1. Abdominal pain Likely 2/2 cholelithiasis and possible cholecystitis seen on GB US with pericholecystic fluid No signs of pancreatitis, lipase normal Imaging reviewed by myself and read reviewed, CBD 5mm Seen by surgery yesterday who suggested outpatient follow up but now returning with same symptoms, will re-consult NPO for now Continued metronidazole Started protonix Continue maintenance fluids Vitals q4h Repeat labs in the AM DVT ppx: SCDs Patient was seen and examined at bedside - Date & Time Date: 01/20/17 Time: 04:25
[2017-01-20] MEDS ORDERED: Morphine 2 mg/ml ISec IVP PRN (04:59)
[2017-01-20 07:49] LABS: INR 0.99 (0.93-1.08); PARTIAL THROMBOPLASTIN TIME 30.1 Seconds (23.7-30.8)
--- NOTE | 2017-01-20 08:22 | CP.PCM.CON ---
History of Present Illness - History of Present Illness History of Present Illness: General Surgery Dr. Gracia HPI: 31 y/o Bahraini-speaking F presents to the ED w/ CC of gissell-umbilical abd pain. Pt states pain originally began on Thursday. Pt came to the ED, had a CT and Abd U/S done, and was sent home w/ instructions to f/u in outpatient clinic. Pain continued w/o relief, so pt returned to the ED Thursday night. Pt reports having abd pain in the past but never this severe. Pain is constant w/ intermittent radiation into the back and shoulders. Pt denies F/C, N/V, D/C. PMHx: denies Meds: reviewed NKDA PSHx: R leg surgery SHx: denies tobacco, EtOH, Drug use FHx: mother - healthy; father - unknown Review of Systems - Review of Systems All systems: reviewed and no additional remarkable complaints except (see HPI) Past Patient History - Past Social History Smoking Status: Never Smoked - MUSCULOSKELETAL/RHEUMATOLOGICAL Hx Falls: No - PSYCHIATRIC Hx Psychophysiologic Disorder: No Hx Substance Use: No - SURGICAL HISTORY Hx Surgeries: No - ANESTHESIA Hx Anesthesia: No Meds Allergies/Adverse Reactions: Allergies Allergy/AdvReac Type Severity Reaction Status Date / Time No Known Allergies Allergy Verified 01/18/17 05:08 - Medications Medications: Current Medications Metronidazole (Flagyl) 500 mg in 100 mls @ 100 mls/hr IVPB Q8H [facility] PRN Reason: Protocol Ceftriaxone Sodium (Rocephin 1 Gram Ivpb) 1 gm in 100 mls @ 100 mls/hr IVPB DAILY ALEJANDRO PRN Reason: Protocol Morphine Sulfate (Morphine) 1 mg IVP Q4H PRN PRN Reason: Pain, severe (8-10) Pantoprazole Sodium (Protonix Inj) 40 mg IVP DAILY [facility] Physical Exam - Constitutional Appears: Non-toxic, No Acute Distress - Head Exam Head Exam: NORMAL INSPECTION - Eye Exam Eye Exam: Normal appearance - ENT Exam ENT Exam: Mucous Membranes Moist - Respiratory Exam Respiratory Exam: Clear to Auscultation Bilateral, NORMAL BREATHING PATTERN. absent: Accessory Muscle Use, Respiratory Distress - Cardiovascular Exam Cardiovascular Exam: REGULAR RHYTHM, +S1, +S2. absent: Bradycardia, Tachycardia - GI/Abdominal Exam GI & Abdominal Exam: Hyperactive Bowel Sounds, Soft, Tenderness (TTP RUQ). absent: Distended, Rebound, Rigid - Extremities Exam Extremities exam: Positive for: normal inspection. Negative for: pedal edema, tenderness - Neurological Exam Neurological exam: Alert, Oriented x3 - Psychiatric Exam Psychiatric exam: Normal Affect, Normal Mood - Skin Skin Exam: Dry, Intact, Normal Color, Warm Results - Vital Signs Recent Vital Signs: Last Vital Signs Temp 97.6 F 01/20/17 04:31 Pulse 60 01/20/17 04:31 Resp 18 01/20/17 04:31 BP 109/73 01/20/17 04:31 Pulse Ox 97 01/20/17 03:14 - Labs Result Diagrams: 01/19/17 22:41 01/19/17 22:41 Labs: Laboratory Results - last 24 hr 01/20/17 07:00 PT 10.7 INR 0.99 APTT 30.1 - Imaging and Cardiology CT scan - abdomen Status: Image reviewed by me, Report reviewed by me US - abdomen Status: Image reviewed by me, Report reviewed by me Assessment & Plan - Assessment and Plan (Free Text) Assessment: 31 y/o F w/ abd pain likely 2/2 acute cholecystitis - NPO, IVF - IV Abx - pain management - ant-emetic - OR today for laparoscopic cholecystectomy Pt discussed w/ Dr. Basil Griffin DO PGY1
[2017-01-20 09:17] LABS: PH,URINE 5.5 (4.7-8.0); URINE BILIRUBIN NEGATIVE (NEGATIVE); URINE BLOOD NEGATIVE (NEGATIVE); URINE GLUCOSE (UA) NEGATIVE (NEGATIVE); URINE KETONE NEGATIVE (NEGATIVE); URINE LEUKOCYTE ESTERASE NEGATIVE Leu/uL (NEGATIVE); URINE PROTEIN NEGATIVE mg/dL (<30 mg/dL)
[2017-01-20 09:19] LABS: URINE APPEARANCE CLEAR (CLEAR); URINE COLOR YELLOW (YELLOW)
[2017-01-20] MEDS: cefTRIAXone 1 gm 1 GM/100 ML BAG IVPB SCH (09:27)
[2017-01-20] MEDS ORDERED: Lactated Ringer's 1,000 ML IV SCH ×2 (11:01→15:08)
[2017-01-20] MEDS: metroNIDAZOLE IV 500 mg/100 ml 500 MG/100 ML BAG IVPB SCH ×2 (12:10→22:33)
[2017-01-20] MEDS ORDERED: Propofol 10 mg/ml Inj (20 ML) ONE (12:40)
[2017-01-20] MEDS ORDERED: Midazolam 2 MG/2 ML VIAL ONE (13:47)
[2017-01-20] MEDS ORDERED: Desflurane Inhalation Anesthetic Liq (240 ml) ONE (13:48)
[2017-01-20] MEDS ORDERED: Neostigmine Methylsulfate 3mg/3ml Syringe IV ONE (15:04)
[2017-01-20] MEDS ORDERED: Morphine 4 mg/ml ISec IVP PRN (15:08)
[2017-01-20] MEDS ORDERED: HYDROmorphone 0.5 mg/0.5 ml ISec IVP PRN (15:08)
[2017-01-20] MEDS ORDERED: Oxycodone/Acetaminophen 5/325 mg Tab PO PRN (15:08)
[2017-01-20] MEDS ORDERED: HYDROmorphone 0.5 mg/0.5 ml ISec ONE (15:10)
--- NOTE | 2017-01-20 15:15 | PCM.SURG1 ---
Surgeon's Initial Post Op Note - Surgeon's Notes Surgeon: Dr. Gracia Aerospace Assembler: Dr. Craig PGY2, Dr. Griffin PGY1 Type of Anesthesia: General Endo Pre-Operative Diagnosis: acute cholecystitis Operative Findings: see dictation Post-Operative Diagnosis: same Operation Performed: laparoscopic cholecystectomy Specimen/Specimens Removed: gallbladder Estimated Blood Loss: EBL {In ML}: 20 Post-Op Condition: Good Date of Surgery/Procedure: 01/20/17 Time of Surgery/Procedure: 13:30
[2017-01-21] MEDS: metroNIDAZOLE IV 500 mg/100 ml 500 MG/100 ML BAG IVPB SCH ×2 (05:50→12:24)
--- NOTE | 2017-01-21 07:38 | CP.PCM.PN ---
Subjective - Date & Time of Evaluation Date of Evaluation: 01/21/17 Time of Evaluation: 07:34 - Subjective Subjective: General Surgery: Dr Gracia POD#1 laparoscopic cholecystectomy Pt S&E. Resting comfortably in bed. Denies any pain at this time. Pt reports she has been OOB, is passing flatus and has voided independently. Pt has not yet attempted PO intake. Pt expresses hesitancy about being discharged. Objective - Vital Signs/Intake and Output Vital Signs (last 24 hours): Temp Pulse Resp BP Pulse Ox 97.8 F 69 18 123/97 H 99 01/20/17 16:00 01/20/17 16:00 01/20/17 16:00 01/20/17 16:00 01/20/17 16:00 Intake and Output: 01/21/17 01/21/17 06:59 18:59 Intake Total 1560 Output Total 950 Balance 610 - Medications Medications: Current Medications Acetaminophen (Tylenol 325mg Tab) 650 mg PO Q6H PRN PRN Reason: Pain, Mild (1-3) Enoxaparin Sodium (Lovenox) 40 mg SC DAILY [facility] PRN Reason: Protocol Metronidazole (Flagyl) 500 mg in 100 mls @ 100 mls/hr IVPB Q8H [facility] PRN Reason: Protocol Last Admin: 01/21/17 05:50 Dose: 100 mls/hr Ceftriaxone Sodium (Rocephin 1 Gram Ivpb) 1 gm in 100 mls @ 100 mls/hr IVPB DAILY [facility] PRN Reason: Protocol Last Admin: 01/20/17 09:27 Dose: 100 mls/hr Lactated Ringer's (Lactated Ringer's) 1,000 mls @ 75 mls/hr IV .[id number] [facility] Morphine Sulfate (Morphine) 4 mg IVP Q4H PRN PRN Reason: Pain, severe (8-10) Ondansetron HCl (Zofran Inj) 4 mg IVP Q4H PRN PRN Reason: Nausea/Vomiting Oxycodone/Acetaminophen (Percocet 5/325 Mg Tab) 1 tab PO Q4H PRN PRN Reason: Pain, moderate (4-7) Stop: 01/23/17 15:09 Pantoprazole Sodium (Protonix Inj) 40 mg IVP DAILY [facility] Last Admin: 01/20/17 09:26 Dose: 40 mg - Labs Labs: PT 10.7 Seconds (9.9-11.8) 01/20/17 07:00 INR 0.99 (0.93-1.08) 01/20/17 07:00 APTT 30.1 Seconds (23.7-30.8) 01/20/17 07:00 - Constitutional Appears: Non-toxic, No Acute Distress - Head Exam Head Exam: NORMAL INSPECTION - Respiratory Exam Respiratory Exam: absent: Accessory Muscle Use, Respiratory Distress - Cardiovascular Exam Cardiovascular Exam: REGULAR RHYTHM. absent: Tachycardia, Irregular Rhythm - GI/Abdominal Exam GI & Abdominal Exam: Soft, Tenderness (post-surgical and appropriate). absent: Distended, Firm, Guarding, Rigid Additional comments: abdominal ports x 4 C/D/I w/ dermabond - Extremities Exam Extremities Exam: Normal Inspection. absent: Calf Tenderness, Pedal Edema - Neurological Exam Neurological Exam: Alert, Awake, Oriented x3 - Psychiatric Exam Psychiatric exam: Normal Affect, Normal Mood - Skin Skin Exam: Normal Color, Warm Assessment and Plan - Assessment and Plan (Free Text) Assessment: 31F POD#1 s/p lap edie Plan: Pt on regular diet Clear for discharge if tolerates; can d/c with Rx for percocet if needed No further lab work required encourage ambulation, encourage incentive spirometer use f/u in [address] Gracia d/w Dr Basil Craig, DO, PGY2
[2017-01-21 07:52] LABS: ADD MANUAL DIFF? NO
[2017-01-21 07:58] LABS: BASO # 0.02 K/mm3 (0.0-2.0); BASO % 0.3 % (0.0-3.0); EOS # 0.1 (0.0-0.7); EOS % 1.6 % (1.5-5.0); GRAN # 4.89 (1.4-6.5); GRAN % 65.1 % (50.0-68.0); LYMPH # 1.9 (1.2-3.4); LYMPH % 24.9 % (22.0-35.0); MEAN CELL VOLUME 86.5 fL (80.0-105.0); MEAN CORPUSCULAR HEMOGLOBIN 28.4 pg (25.0-35.0); MEAN CORPUSCULAR HGB CONC 32.8 g/dl (31.0-37.0); MONO # 0.6 (0.1-0.6); MONO % 8.1 % (1.0-6.0); PLATELET COUNT 283 10^3/uL (120.0-450.0); RED CELL DISTRIBUTION WIDTH 13.1 % (11.5-14.5); WHITE BLOOD COUNT 7.5 10^3/ul (4.5-11.0)
[2017-01-21 08:17] LABS: ALKALINE PHOSPHATASE 62 U/L (38-133); ALT/SGPT 68 U/L (7-56); AST/SGOT 68 U/L (15-39); BLOOD UREA NITROGEN 7 mg/dL (7-21); CALCIUM 9.3 mg/dL (8.4-10.5); CARBON DIOXIDE 25 mmol/L (21-33); CHLORIDE 105 mmol/L (98-107); GFR AFRICAN-AMERICAN > 60; GLUCOSE,RANDOM 81 mg/dL (70-110); POTASSIUM 4.2 mmol/L (3.6-5.0); SODIUM 140 mmol/L (132-148); TOTAL PROTEIN 7.3 g/dL (5.8-8.3)
[2017-01-21] MEDS ORDERED: Enoxaparin 40 mg Syringe SC SCH (10:00)
[2017-01-21 10:08] VITALS: BP 120/76; PULSE 84; RESP 19; TEMP 98.8; O2SAT 100
--- NOTE | 2017-01-21 10:38 | OP ---
PROCEDURE DATE: 01/20/2017 SURGEON: Dr. Genna Gracia. COMPLETIONS MANAGER: Dr. Craig and Dr. Griffin. ANESTHESIA: General. PREOPERATIVE DIAGNOSIS: Acute cholecystitis. POSTOPERATIVE DIAGNOSIS: Acute cholecystitis. PROCEDURE: Laparoscopic cholecystectomy. DESCRIPTION OF OPERATION: With the patient in the supine position under adequate general anesthesia, the abdomen was prepped and draped in the usual sterile manner. Veress needle puncture was performe d at the umbilicus with insufflation to 15 cm water pressure of CO2 and a 10 mm laparoscopic trocar w as inserted via a supraumbilical incision. Under direct vision, additional trocars were inserted in the epigastrium and right costal margin. The gallbladder was visualized. It was shiny and softly di stended, although it appeared that acute cholecystitis was resolving. The gallbladder fundus was gra sped and elevated. Inflammatory adhesions were freed posteriorly and inferiorly to expose the infund ibulum which was grasped and retracted laterally. The cystic duct was identified and dissected by cl earing off thickened peritoneal attachments down toward the junction with the common bile duct. A si ngle large artery was also identified passing medially along the left edge of the gallbladder and thi s was preserved as branches to the gallbladder would be identified with further dissection. The cyst ic duct was then visualized anteriorly and posteriorly after freeing the peritoneal attachments and t he cystic duct was triply clipped and divided close to the gallbladder. The gallbladder was dissecte d free of the liver bed using electrocautery. The liver bed and gallbladder wall were both edematous and friable consistent with recent acute inflammation. The liver bed was examined for hemostasis an d the dissection was completed. The gallbladder was placed in a specimen retrieval bag and removed v ia the umbilical port site. Right upper quadrant was irrigated and suctioned. The pneumoperitoneum was released and the trocars were removed. The umbilical port site was closed with a [id number] fascial suture of 0 Vicryl. All incisions were closed with 4-[address] sharonda-Strips. Dry sterile dressings were applied. The patient tolerated the procedure well and transf erred to recovery room in stable condition. Estimated blood loss for the procedure was 10 mL. Genna Gracia MD cc: 58 TT: 01/21/2017 10:38:16 tn
[2017-01-21] MEDS: cefTRIAXone 1 gm 1 GM/100 ML BAG IVPB SCH (10:46)
--- NOTE | 2017-01-21 11:57 | CP.PCM.DIS ---
<Kiah Hernandez - Last Filed: 01/21/17 11:49> Provider - Provider Date of Admission: 01/20/17 02:08 Attending physician: Angella Trinidad MD Consults: Dr. Graica- surgeon Time Spent in preparation of Discharge (in minutes): 45 Diagnosis - Discharge Diagnosis (1) S/P laparoscopic cholecystectomy Status: Acute (2) Biliary colic Status: Acute Hospital Course - Lab Results Lab Results: Most Recent Lab Values WBC 7.5 10^3/ul (4.5-11.0) 01/21/17 07:30 RBC 4.51 10^6/uL (3.5-6.1) 01/21/17 07:30 Hgb 12.8 gm/dL (12.0-16.0) 01/21/17 07:30 Hct 39.0 % (36.0-48.0) 01/21/17 07:30 MCV 86.5 fL (80.0-105.0) 01/21/17 07:30 MCH 28.4 pg (25.0-35.0) 01/21/17 07:30 MCHC 32.8 g/dl (31.0-37.0) 01/21/17 07:30 RDW 13.1 % (11.5-14.5) 01/21/17 07:30 Plt Count 283 10^3/uL (120.0-450.0) 01/21/17 07:30 MPV 10.0 fl (7.0-11.0) 01/21/17 07:30 Gran % 65.1 % (50.0-68.0) 01/21/17 07:30 Lymph % (Auto) 24.9 % (22.0-35.0) 01/21/17 07:30 [place] % (Auto) 8.1 % (1.0-6.0) H 01/21/17 07:30 Eos % (Auto) 1.6 % (1.5-5.0) 01/21/17 07:30 Baso % (Auto) 0.3 % (0.0-3.0) 01/21/17 07:30 Gran # 4.89 (1.4-6.5) 01/21/17 07:30 Lymph # 1.9 (1.2-3.4) 01/21/17 07:30 [place] # 0.6 (0.1-0.6) 01/21/17 07:30 Eos # 0.1 (0.0-0.7) 01/21/17 07:30 Baso # 0.02 K/mm3 (0.0-2.0) 01/21/17 07:30 PT 10.7 Seconds (9.9-11.8) 01/20/17 07:00 INR 0.99 (0.93-1.08) 01/20/17 07:00 APTT 30.1 Seconds (23.7-30.8) 01/20/17 07:00 Sodium 140 mmol/L (132-148) 01/21/17 07:30 Potassium 4.2 mmol/L (3.6-5.0) 01/21/17 07:30 Chloride 105 mmol/L (98-107) 01/21/17 07:30 Carbon Dioxide 25 mmol/L (21-33) 01/21/17 07:30 Anion Gap 14 (10-20) 01/21/17 07:30 BUN 7 mg/dL (7-21) 01/21/17 07:30 Creatinine 0.7 mg/dL (0.5-1.4) 01/21/17 07:30 Est GFR ( Amer) > 60 01/21/17 07:30 Est GFR (Non-Af Amer) > 60 01/21/17 07:30 Random Glucose 81 mg/dL (70-110) 01/21/17 07:30 Calcium 9.3 mg/dL (8.4-10.5) 01/21/17 07:30 Total Bilirubin 1.0 mg/dL (0.2-1.3) 01/21/17 07:30 AST 68 U/L (15-39) H 01/21/17 07:30 ALT 68 U/L (7-56) H 01/21/17 07:30 Alkaline Phosphatase 62 U/L (38-133) 01/21/17 07:30 Total Protein 7.3 g/dL (5.8-8.3) 01/21/17 07:30 Albumin 3.6 g/dL (3.0-4.8) 01/21/17 07:30 Globulin 3.7 gm/dL 01/21/17 07:30 Albumin/Globulin Ratio 1.0 (1.1-1.8) L 01/21/17 07:30 Lipase 56 U/L (23-300) 01/19/17 22:41 Urine Color Yellow (YELLOW) 01/20/17 09:00 Urine Appearance Clear (CLEAR) 01/20/17 09:00 Urine pH 5.5 (4.7-8.0) 01/20/17 09:00 Ur Specific [place] 1.025 (1.005-1.035) 01/20/17 09:00 Urine Protein Negative mg/dL (<30 mg/dL) 01/20/17 09:00 Urine Glucose (UA) Negative mg/dL (NEGATIVE) 01/20/17 09:00 Urine Ketones Negative mg/dL (NEGATIVE) 01/20/17 09:00 Urine Blood Negative (NEGATIVE) 01/20/17 09:00 Urine Nitrate Negative (NEGATIVE) 01/20/17 09:00 Urine Bilirubin Negative (NEGATIVE) 01/20/17 09:00 Urine Urobilinogen 1.0 E.U./dL (<1 E.U./dL) H 01/20/17 09:00 Ur Leukocyte Esterase Negative Khoi/uL (NEGATIVE) 01/20/17 09:00 Urine HCG, Qual Negative (NEGATIVE) 01/20/17 09:00 - Hospital Course Hospital Course: 31 year old female with no PMH who presents to [facility] ER on 01/20/17 with complaints of abdominal pain for 2 days. Patient states the pain is diffuse over the abdomen, mostly in the center, non-radiating, not associated with N/V/D/C/fevers /chills, aggravated by meals, particularly oily/fatty meals, not alleviated by anything that she's noticed, and 10/10, intermittent at worst. Patient states that she has been actually having these symptoms for 2-3 weeks on and off but now she can't eat anything without getting some pain. Patient had ultrasound of abdomen done on admission which showed gallbladder wall thickening and mild pericholecystic fluid and gallbladder filled with sludge and stones. Patient was afebrile and didn't have an elevated WBC count on admission. Surgical consult was requested. Primary care team and surgical team had extensive conversation with patient and her , the gravity prospecting supervisor, about the procedure. Explained to both of them at length the risks and benefits of the procedure. Patient underwent laproscopic cholecystectomy. POD# 1 patient was tolerating diet and had only minimal pain at surgical site. Patient was discharged on POD#1. Patient is to follow up with PMD upon discharge. Patient is to follow up with surgeon, Dr. Gracia in 1 week after discharge. Patient is sent home with the following medications: percocet 5/325 q6 prn pain #12 pills and colace 100 mg po bid #30 prn constipation. Script are printed and will be given to patient upon discharge. I called patient's (gravity prospecting supervisor) and left a message explaining that patient is to be discharged today. I also explained the discharge instruction in my voice message. Please see EMR for full details. - Date & Time of H&P Date of H&P: 01/21/ Time of H&P: 11:51 Discharge Exam - Head Exam Head Exam: NORMAL INSPECTION - Eye Exam Pupil Exam: PERRL - ENT Exam ENT Exam: Mucous Membranes Moist - Respiratory Exam Respiratory Exam: Clear to PA & Lateral, NORMAL BREATHING PATTERN. absent: Rales, Rhonchi, Wheezes - Cardiovascular Exam Cardiovascular Exam: REGULAR RHYTHM, +S1, +S2. absent: Diastolic murmur, Gallop , Rubs, Systolic Murmur - GI/Abdominal Exam GI & Abdominal Exam: Normal Bowel Sounds, Soft, Tenderness, Unremarkable - Extremities Exam Additional comments: no edema or tenderness - Neurological Exam Neurological exam: Alert, Oriented x3 - Psychiatric Exam Psychiatric exam: Normal Affect, Normal Mood - Skin Skin Exam: Dry, Intact, Normal Color, Warm Discharge Plan - Discharge Medications Prescriptions: Docusate Sodium [Colace] 100 mg PO BID PRN #30 capsule PRN Reason: Constipation oxyCODONE/Acetaminophen [Percocet 5/325 mg Tab] 1 ea PO Q6 PRN #20 tab PRN Reason: Pain, Moderate (4-7) - Follow Up Plan Condition: GOOD Disposition: HOME/ ROUTINE Instructions: Laparoscopic Cholecystectomy (DC) Additional Instructions: Patient is to follow up with PMD upon discharge. Patient is to follow up with surgeon, Dr. Gracia in 1 week after discharge. Patient is sent home with the following medications: percocet 5/325 q6 prn pain #12 pills and colace 100 mg po bid #30 prn constipation. Script are printed and will be given to patient upon discharge. I called patient's (gravity prospecting supervisor) and left a message explaining that patient is to be discharged today. I also explained the discharge instruction in my voice message. <Angella Trinidad - Last Filed: 01/21/17 14:15> Provider - Provider Date of Admission: 01/20/17 02:08 Attending physician: Angella Trinidad MD Hospital Course - Lab Results Lab Results: Most Recent Lab Values WBC 7.5 10^3/ul (4.5-11.0) 01/21/17 07:30 RBC 4.51 10^6/uL (3.5-6.1) 01/21/17 07:30 Hgb 12.8 gm/dL (12.0-16.0) 01/21/17 07:30 Hct 39.0 % (36.0-48.0) 01/21/17 07:30 MCV 86.5 fL (80.0-105.0) 01/21/17 07:30 MCH 28.4 pg (25.0-35.0) 01/21/17 07:30 MCHC 32.8 g/dl (31.0-37.0) 01/21/17 07:30 RDW 13.1 % (11.5-14.5) 01/21/17 07:30 Plt Count 283 10^3/uL (120.0-450.0) 01/21/17 07:30 MPV 10.0 fl (7.0-11.0) 01/21/17 07:30 Gran % 65.1 % (50.0-68.0) 01/21/17 07:30 Lymph % (Auto) 24.9 % (22.0-35.0) 01/21/17 07:30 [place] % (Auto) 8.1 % (1.0-6.0) H 01/21/17 07:30 Eos % (Auto) 1.6 % (1.5-5.0) 01/21/17 07:30 Baso % (Auto) 0.3 % (0.0-3.0) 01/21/17 07:30 Gran # 4.89 (1.4-6.5) 01/21/17 07:30 Lymph # 1.9 (1.2-3.4) 01/21/17 07:30 [place] # 0.6 (0.1-0.6) 01/21/17 07:30 Eos # 0.1 (0.0-0.7) 01/21/17 07:30 Baso # 0.02 K/mm3 (0.0-2.0) 01/21/17 07:30 PT 10.7 Seconds (9.9-11.8) 01/20/17 07:00 INR 0.99 (0.93-1.08) 01/20/17 07:00 APTT 30.1 Seconds (23.7-30.8) 01/20/17 07:00 Sodium 140 mmol/L (132-148) 01/21/17 07:30 Potassium 4.2 mmol/L (3.6-5.0) 01/21/17 07:30 Chloride 105 mmol/L (98-107) 01/21/17 07:30 Carbon Dioxide 25 mmol/L (21-33) 01/21/17 07:30 Anion Gap 14 (10-20) 01/21/17 07:30 BUN 7 mg/dL (7-21) 01/21/17 07:30 Creatinine 0.7 mg/dL (0.5-1.4) 01/21/17 07:30 Est GFR ( Amer) > 60 01/21/17 07:30 Est GFR (Non-Af Amer) > 60 01/21/17 07:30 Random Glucose 81 mg/dL (70-110) 01/21/17 07:30 Calcium 9.3 mg/dL (8.4-10.5) 01/21/17 07:30 Total Bilirubin 1.0 mg/dL (0.2-1.3) 01/21/17 07:30 AST 68 U/L (15-39) H 01/21/17 07:30 ALT 68 U/L (7-56) H 01/21/17 07:30 Alkaline Phosphatase 62 U/L (38-133) 01/21/17 07:30 Total Protein 7.3 g/dL (5.8-8.3) 01/21/17 07:30 Albumin 3.6 g/dL (3.0-4.8) 01/21/17 07:30 Globulin 3.7 gm/dL 01/21/17 07:30 Albumin/Globulin Ratio 1.0 (1.1-1.8) L 01/21/17 07:30 Lipase 56 U/L (23-300) 01/19/17 22:41 Urine Color Yellow (YELLOW) 01/20/17 09:00 Urine Appearance Clear (CLEAR) 01/20/17 09:00 Urine pH 5.5 (4.7-8.0) 01/20/17 09:00 Ur Specific [place] 1.025 (1.005-1.035) 01/20/17 09:00 Urine Protein Negative mg/dL (<30 mg/dL) 01/20/17 09:00 Urine Glucose (UA) Negative mg/dL (NEGATIVE) 01/20/17 09:00 Urine Ketones Negative mg/dL (NEGATIVE) 01/20/17 09:00 Urine Blood Negative (NEGATIVE) 01/20/17 09:00 Urine Nitrate Negative (NEGATIVE) 01/20/17 09:00 Urine Bilirubin Negative (NEGATIVE) 01/20/17 09:00 Urine Urobilinogen 1.0 E.U./dL (<1 E.U./dL) H 01/20/17 09:00 Ur Leukocyte Esterase Negative Khoi/uL (NEGATIVE) 01/20/17 09:00 Urine HCG, Qual Negative (NEGATIVE) 01/20/17 09:00 Attending/Attestation - Attestation I have personally seen and examined this patient.: Yes I have fully participated in the care of the patient.: Yes I have reviewed all pertinent clinical information, including history, physical exam and plan: Yes Notes (Text): 01/21/17 14:14 Attending note; Patient seen and examined with resident. Patient is a 31-year-old female admitted with acute cholecystitis. Status post lap cholecystectomy by Dr. Gracia yesterday. Tolerating diet. She will be discharged home today. follow up with surgery Dr. Gracia in 1 week. Follow-up with PMD of choice. Diagnosis; Acute cholecystitis Status post lap cholecystectomy
== END 2017-01-21 18:13 | disposition home or self-care (01) | DRG 494 ==
LOC: ED 21:35 → ERH 01-20 02:08 → 3RNO 01-20 03:28
PROVIDERS: ADMIT Internal Medicine; ATTEND Internal Medicine
PROC: 0FT44ZZ Resection of Gallbladder, Percutaneous Endoscopic Approach (ICD-10-PCS; principal; 2017-01-20 13:30)
DX: K80.12 Calculus of gallbladder with acute and chronic cholecystitis without obstruction (principal); K76.0 Fatty (change of) liver, not elsewhere classified